=== PATIENT | female | born 1975 | race Caucasian/White ===

== ENCOUNTER 2017-08-09 11:58 | Emergency (ER) | payer BC ==
[~2017-08-09] VITALS: Ht 162.6 cm; Wt 56.3 kg
[2017-08-09] MEDS ORDERED: MOTRIN600 MG PO (14:42)
[2017-08-09] MEDS ORDERED: ZOFRAN ODT4 MG PO (14:42)
[2017-08-09 14:56] VITALS: BP 124/68
== END 2017-08-09 14:57 | disposition home or self-care (01) ==
LOC: EME 11:58
DX: S00.03XA Contusion of scalp, initial encounter (principal); S06.0X0A Concussion without loss of consciousness, initial encounter; S90.121A Contusion of right lesser toe(s) without damage to nail, initial encounter; W55.19XA Other contact with horse, initial encounter; W01.0XXA Fall on same level from slipping, tripping and stumbling without subsequent striking against object, initial encounter; Y93.89 Activity, other specified; F41.9 Anxiety disorder, unspecified; F32.9 Major depressive disorder, single episode, unspecified
CPT/HCPCS: 70450; 99281; 99283